=== PATIENT | male | born 1955 | race Hispanic/Latino ===

== ENCOUNTER 2016-09-30 09:27 | Observation (INO) | payer SELFPAY ==
[~2016-09-30] VITALS: Ht 172.7 cm; Wt 50.0 kg
[~2016-09-30 09:27] MED LIST: NO HOME MEDS
--- NOTE | 2016-09-30 09:39 | NUR ---
PATIENT TO ROOM VIA EMS
[2016-09-30 10:24] LABS: ALBUMIN 4.5 g/dL (3.2-5.0); ALKALINE PHOSPHATASE 125 u/l (38-126); ANION GAP 18 (6-22 (CALC)); BILIRUBIN, TOTAL 0.9 mg/dL (0.0-1.4); BUN 9 mg/dL (8-23); BUN/CREATININE RATIO 17 (12-20 (CALC)); CALCIUM 9.8 mg/dL (8.4-10.2); CARBON DIOXIDE 30 mmol/l (22-30); CHLORIDE 93 mmol/l (95-108); CREATININE 0.5 mg/dL (0.7-1.3); ETHYL ALCOHOL 0 mg/dl (0-30); GFR > 60 ML/MIN (>=60 (CALC)); GFR FOR AFR.AMER. > 60 ML/MIN (>=60 (CALC)); GLUCOSE 191 mg/dL (82-115); POTASSIUM 2.9 mmol/l (3.5-5.1); SGOT/AST 203 u/l (19-48); SGPT/ALT 124 u/l (11-66); SODIUM 138 mmol/l (137-146); TOTAL PROTEIN 8.8 g/dL (6.3-8.2)
--- NOTE | 2016-09-30 10:30 | NUR ---
TONGUE SUTURED BY . PT TOLERATED WELL.
[2016-09-30 10:38] LABS: MYOGLOBIN 582 ng/mL (0 - 121)
[2016-09-30 11:01] LABS: HEMATOCRIT 40.3 % (39.0-50.0); HEMOGLOBIN 13.7 g/dl (14.0-18.0); IMMATURE GRANULOCYTES 0.3 % (0.0-1.0); MEAN CELL VOLUME 92.2 fL CALC (80.0-100.0); MEAN CORPUSCULAR HGB 31.4 pG CALC (26.0-32.0); NEUT# 7.44 thou/uL (1.82-7.42); RED BLOOD COUNT 4.37 mill/uL (4.70-6.10); RED CELL DISTRI WIDTH 14.1 % (11.5-15.5)
--- NOTE | 2016-09-30 11:30 | NUR ---
PT SLEEPING ON STRETCHER RESPONDS TO VERBAL SIMULI. IV SITE HEALTHY. NO SEIZURE ACTIVITY MEDS ORDERED.
--- NOTE | 2016-09-30 11:51 | NUR ---
REPORT PROVIDED TO SHEYLA DOYLE.
--- NOTE | 2016-09-30 11:53 | NUR ---
PT TO MEDSURG ON TELEMETRY. MULTI VIT IV FLUIDS INFUSING SITE HEALTHY. NO APPARNET DISTRESS.
[2016-09-30 12:00] VITALS: BP 141/93
--- NOTE | 2016-09-30 12:10 | NUR ---
PT TO ROOM VIA STRETCHER ACCOMPANIED BY STAFF; AMBULATORY TO BED WITH STAND BY ASSIST; SUTURES NOTED TO TONGUE, NO DRAINAGE NOTED; TELE MONITOR IN PLACE; SEIZURE PRECAUTIONS INITIATED; ORIENTED TO ROOM AND CALL SYSTEM; WILL CONTINUE TO MONITOR.
--- NOTE | 2016-09-30 13:45 | NUR ---
DR. DIETZ IN TO SEE PT; PLAN OF CARE DISCUSSED
--- NOTE | 2016-09-30 14:15 | NUR ---
PT RESTING WITH EYES CLOSED; NO S/SX OF DISTRESS NOTED; CALL COHEN WITHIN REACH; WILL CONTINUE TO MONITOR.
[2016-09-30 16:00] VITALS: BP 128/81
[2016-09-30 19:19] VITALS: BP 143/87
--- NOTE | 2016-09-30 20:15 | NUR ---
PT. RESTING IN BED WITH NO DISTRESS NOTED. ASSESSMENT COMPLETED. IV SITE PATENT AND BANABAG INFUSING. NO SHAKING NOTED. PO FLUIDS GIVEN. ENCOURAGED PT. TO CALL FOR ANY NEEDS. CALL LIGHT IS IN REACH. SIDE RAILS PADDED. WILL CONTINUE TO MONITOR.
--- NOTE | 2016-09-30 22:39 | NUR ---
PT. RESTING IN BED WITH NO DISTRESS NOTED. DENIES NEEDS/PAIN OR NERVOUSNESS. PT. INSTRUCTED TO CALL IF ANY ANXIETY, SHAKING, OR NERVOUSNESS OCCURS, VERBLAIZES UNDERSTANDING. CALL LIGHT IS IN REACH, AND REINSTRUCTED PT ON USE OF CALL LIGHT, AND TO CALL FOR ANY OOB NEEDS, VERBALIZES UNDERSTANDING. WILL CONITINUE TO MONITOR.
[2016-09-30 23:15] VITALS: BP 144/90
--- NOTE | 2016-10-01 01:30 | NUR ---
PT. RESTING IN BED WITH NO DISTRESS NOTED. EYES CLOSED. CALL LIGHT IS IN REACH.
[2016-10-01 03:41] VITALS: BP 140/85
--- NOTE | 2016-10-01 04:40 | NUR ---
IV SITE TO LAC FOUND DISLODGED, CATH TIP IS INTACT. NEW IV STARTED #22 GAUGE TO LFA X1 ATTEMPT, AM LABS DRAWN AT THIS TIME. PT. DENIES ANXIETY OR NERVOUSNESS, NO SHAKING OBSERVED. WILL CONTINUE TO MONITOR.
[2016-10-01 05:40] LABS: HEMATOCRIT 40.1 % (39.0-50.0); HEMOGLOBIN 13.7 g/dl (14.0-18.0); IMMATURE GRANULOCYTES 0.4 % (0.0-1.0); MEAN CELL VOLUME 93.3 fL CALC (80.0-100.0); MEAN CORPUSCULAR HGB 31.9 pG CALC (26.0-32.0); MEAN CORPUSCULAR HGB CONC 34.2 g/L CALC (32.0-36.0); NEUT# 5.71 thou/uL (1.82-7.42); RED BLOOD COUNT 4.3 mill/uL (4.70-6.10); RED CELL DISTRI WIDTH 14.1 % (11.5-15.5)
[2016-10-01 06:00] LABS: ANION GAP 18 (6-22 (CALC)); BUN 6 mg/dL (8-23); BUN/CREATININE RATIO 13 (12-20 (CALC)); CALCIUM 9.4 mg/dL (8.4-10.2); CARBON DIOXIDE 25 mmol/l (22-30); CHLORIDE 98 mmol/l (95-108); CREATININE 0.4 mg/dL (0.7-1.3); GFR > 60 ML/MIN (>=60 (CALC)); GFR FOR AFR.AMER. > 60 ML/MIN (>=60 (CALC)); GLUCOSE 85 mg/dL (82-115); MAGNESIUM 1.2 mg/dL (1.6-2.3); POTASSIUM 3.2 mmol/l (3.5-5.1); SODIUM 138 mmol/l (137-146)
[2016-10-01 07:35] VITALS: BP 140/85
--- NOTE | 2016-10-01 07:35 | NUR ---
ASSESSMENT IS COMPLETED: IV SITE IS FREE FROM REDNESS OR EDEMA. DENIES ANY PAIN. TELE MONITOR IN PLACE. CONTINUE TO OSBERVE AND MONITOR.
--- NOTE | 2016-10-01 12:00 | NUR ---
PT IS WAITING FOR MEDICATION TO INFUSE. ALMOST COMPLETED: IS GOING TO DISCHARGE PT. INTERPRETED BY ERICH CENA. INFORMED PT TO WAIT FOR INSTRUCTIONS.
--- NOTE | 2016-10-01 12:14 | NUR ---
PT LEFT THE UNIT BEFORE DISCHARGE INSTRUCTIONS COULD BE GIVEN , TELE MONITOR IN THE BED AND IV FLUIDS DISCONNECTED. IV SITE STILL INTACT. WITNESSED BY UNIT COORDINATORS , NURSE AND
--- NOTE | 2016-10-01 13:00 | NUR ---
ATTEMPTED TO CALL PT RE: DISCHARGE INSTRUCTIONS VIA HOUSKEEPER. NO ANSWER AT THE NUMBER WENT TO [facility]IL. WILL TRY AGAIN.
--- NOTE | 2016-10-01 15:45 | NUR ---
ATTEMPTED AGAIN TO CALL PT . WANTING HIM TO RETURN TO THE HOSPITAL,. WENT TO [facility] .
== END 2016-10-01 12:14 | disposition home or self-care (01) | DRG 983 ==
LOC: ENPENDDIS → ED 09:27 → ED-I 11:17 → ED 11:18 → MS2 11:19
PROVIDERS: Emergency Medicine; ADMIT Internal Medicine; ATTEND Internal Medicine
PROC: 0CQ7XZZ Repair Tongue, External Approach (ICD-10-PCS; principal; 2016-09-30)
DX: F10.239 Alcohol dependence with withdrawal, unspecified (principal); R56.9 Unspecified convulsions; S01.512A Laceration without foreign body of oral cavity, initial encounter; E83.42 Hypomagnesemia; E87.6 Hypokalemia; X58.XXXA Exposure to other specified factors, initial encounter; Z87.891 Personal history of nicotine dependence
CPT/HCPCS: G0378; J1953; J2060